=== PATIENT | female | born 1995 | race Caucasian/White ===

== ENCOUNTER 2017-05-12 13:51 | Emergency (ER) | payer OTHER ==
[~2017-05-12] VITALS: Ht 162.6 cm; Wt 72.6 kg
[2017-05-12 14:33] LABS: BILIRUBIN,URINE NEGATIVE (NEGATIVE); BLOOD, URINE 2+ (NEGATIVE); CLARITY/URINE CLEAR (CLEAR); COLOR,URINE YELLOW (YELLOW); GLUCOSE,URINE NEGATIVE (NEGATIVE); KETONES,URINE NEGATIVE (NEGATIVE); LEUKOCYTE ESTERASE ,URINE TRACE (NEGATIVE); NITRITE, URINE NEGATIVE (NEGATIVE); PH,URINE 6.5 (5.0-8.0); PROTEIN URINE NEGATIVE (NEGATIVE); UROBILINOGEN,URINE 0.2 (0.2-1.0)
[2017-05-12 14:38] LABS: BACTERIA,URINE FEW /HPF (None Seen); MUCUS,URINE 1+ /LPF (None Seen)
[2017-05-12 14:40] VITALS: BP_SYST 145
--- NOTE | 2017-05-12 15:33 | NUR ---
Pt to hallway bed 1.
--- NOTE | 2017-05-12 16:00 | NUR ---
MIKEL Nguyen [employer]INA DRY DOCK MANAGER at bedside examining patient.
--- NOTE | 2017-05-12 16:05 | NUR ---
Pt ambulated into ED c/o 09/04 intermittent headache x3-5 days. Pt reports she has been having chronic migraines for two years, but has been feeling worse the last few days. Pt takes excedrin for her symptoms with no relief. Breathing even and unlabored, skin pink dry and warm. No other injuries/complaints per pt/noted. Will continue to monitor.
--- NOTE | 2017-05-12 16:57 | NUR ---
# 22 gauge angiocath placed to L AC. Use of asceptic technique. Opsite placed over site. Blood return noted. Flushed with 10 cc of normal saline. No evidence of infiltration noted. Patient tolerated well.
[2017-05-12] MEDS ORDERED: KETOROLAC TROMETHAMINE 30 MG VIAL ONE (17:13)
[2017-05-12] MEDS ORDERED: PROCHLORPERAZINE EDISYLATE 10 MG/2 ML VIAL ONE (17:15)
[2017-05-12] MEDS: KETOROLAC TROMETHAMINE 30 MG VIAL IVP ONE (17:33)
[2017-05-12] MEDS: PROCHLORPERAZINE EDISYLATE 10 MG/2 ML VIAL IVP ONE (17:34)
[2017-05-12] MEDS: NACL 0.9% 1,000 ML IV ONE (17:35)
--- NOTE | 2017-05-12 18:05 | NUR ---
Patient given written and verbal discharge instructions and verbalizes understanding. MIKEL Nguyen TUBE KNITTER discussed with patient the results and treatment provided. Patient in stable condition. ID arm band removed. IV catheter removed intact and dressing applied, no active bleeding. Rx of Excedrin, Motrin, Cipro given. Patient educated on pain management and to follow up with PMD. Pain Scale 1. TUBE KNITTER Aware. Opportunity for questions provided and answered.
[2017-05-12 18:15] VITALS: BP_SYST 138
== END 2017-05-12 18:05 | disposition home or self-care (01) ==
LOC: SED 13:51
DX: G43.909 Migraine, unspecified, not intractable, without status migrainosus (principal); R03.0 Elevated blood-pressure reading, without diagnosis of hypertension
CPT/HCPCS: 81000; 87086; 96361; 96374; 96375; 99284; J0780; J1885; J7030